=== PATIENT | male | born 2000 | race Caucasian/White ===

== ENCOUNTER 2021-02-11 21:02 | Emergency (ER) | payer OTHER | END 2021-02-11 22:29 | disposition home or self-care (01) | LOC: ER1 21:02 | DX: J20.9 Acute bronchitis, unspecified (principal); F17.200 Nicotine dependence, unspecified, uncomplicated; Z20.822 Contact with and (suspected) exposure to COVID-19 | CPT/HCPCS: 0240U; 71045; 99285 ==